=== PATIENT | female | born 1995 | race Caucasian/White ===

== ENCOUNTER 2023-10-19 13:51 | Emergency (ER) | payer BC ==
--- NOTE | 2023-10-19 14:21 | ED Physician Documentation ---
PD HPI CHEST PAIN - Stated complaint Stated Complaint: CHEST PX,SOA - Chief complaint Chief Complaint: Cardiac - History obtained from History obtained from: Patient - History of Present Illness Timing - onset: How many weeks ago (1) Timing - onset during: Light activity Timing - duration: Weeks (1) Timing - details: Still present, Intermittant Quality: Aching, Sharp, Pain Location: Left chest Associated symptoms: No: Shortness of air, Diaphoresis, Nausea, Cough Similar symptoms before: Has not had sx before Review of Systems Constitutional: denies: Fever, Chills Nose: denies: Rhinorrhea / runny nose, Congestion Throat: denies: Sore throat Respiratory: denies: Cough GI: denies: Nausea, Vomiting, Diarrhea Skin: denies: Rash, Lesions Musculoskeletal: denies: Extremity swelling PD PAST MEDICAL HISTORY - Past Medical History Past Medical History: No Cardiovascular: None Respiratory: None Neuro: None Endocrine/Autoimmune: None GI: None YOUTH ADVOCATE: None : None HEENT: None Psych: None Musculoskeletal: None Derm: None - Past Surgical History Past Surgical History: Yes General: Appendectomy - Present Medications Home Medications: Ambulatory Orders Medication Instructions Recorded Confirmed HYDROcod/ACETAM 5/325 [[place] 5/325] 1 ea PO Q6H PRN #14 tablet 10/19/23 Meloxicam [Mobic] 7.5 mg PO BID 10 Days #20 tablet 10/19/23 - Allergies Allergies/Adverse Reactions: Allergies Allergy/AdvReac Type Severity Reaction Status Date / Time No Known Drug Allergies Allergy Verified 10/19/23 14:02 - Social History Does the pt smoke?: No Smoking Status: Never smoker Does the pt drink ETOH?: Yes Does the pt have substance abuse?: No - Immunizations Immunizations are current?: Yes - POLST Patient has POLST: No PD ED PE NORMAL - Vitals Vital signs reviewed: Yes - General General: Alert and oriented X 3, No acute distress, Well developed/nourished - Cardiac Cardiac: RRR, No murmur - Respiratory Respiratory: No respiratory distress, Clear bilaterally, Other (some local chest wall tenderness left sternal border. No red/rash noted. ) - Abdomen Abdomen: Soft, Non tender - Derm Derm: Normal color, Warm and dry - Extremities Extremities: Normal ROM s pain, No edema, No calf tenderness / cord - Neuro Neuro: Alert and oriented X 3, No motor deficit, Normal speech Results - Vitals Vitals: Oxygen O2 Source Room air - Labs Labs: Laboratory Tests 10/19/23 10/19/23 14:25 14:25 WBC 8.4 RBC 4.28 Hgb 14.3 Hct 41.7 MCV 97.4 MCH 33.4 H MCHC 34.3 RDW 11.7 L Plt Count 215 MPV 10.4 Neut # (Auto) 5.0 Lymph # (Auto) 2.5 [place] # (Auto) 0.7 Eos # (Auto) 0.1 Baso # (Auto) 0.1 Absolute Nucleated RBC 0.00 Nucleated RBC % 0.0 Sodium 138 Potassium 3.6 Chloride 106 Carbon Dioxide 24 Anion Gap 8.0 BUN 9 Creatinine 0.6 Estimated GFR (MDRD) 117 Glucose 117 H Calcium 9.8 Total Bilirubin 0.4 AST 13 ALT 8 L Alkaline Phosphatase 50 Troponin I High Sens < 2.3 L Total Protein 7.2 Albumin 4.7 Globulin 2.5 Albumin/Globulin Ratio 1.9 Lipase 19 PD Medical Decision Making - ED course Complexity details: considered differential, d/w patient ED course: The patient has had a week of intermittent anterior chest pain associated with deep breathing but not movement. No change with eating. She had it for a day or so a week ago and then a few days ago and has been more consistent now the last 2 days. It is left parasternal. No prior similar. No recent cough cold or flu symptoms. No recent injury. No recent long travel (drove to [place] and back couple of times but no leg swelling etc.). No direct impact or injury. She states there has been some stress emotionally but nothing too severe. She is planning on a trip with a friend to [place] later this week. She had tried some aspirin at home without notable improvement. No other treatments at home. Consideration is low for ischemic heart disease. Her EKG is normal. She has not had any recent viral illness and no stigmata of edema or failure to suggest cardiomyopathy. Lung sounds are crisp without any wheezing. She does not had viral type illness or cough. We can do a chest x-ray and EKG and troponin as well as basic chemistry panel. If normal, I would attribute it to a pleurisy or costochondritis and treat with consistent anti-inflammatories and add Tylenol. Departure - Departure Disposition: 01 Home, Self Care Clinical Impression: Chest pain Condition: Stable Record reviewed to determine appropriate education?: Yes Instructions: ED Chest Pain Atypical Unkn Cause Prescriptions: Meloxicam [Mobic] 7.5 mg PO BID 10 Days #20 tablet HYDROcod/ACETAM 5/325 [[place] 5/325] 1 ea PO Q6H PRN #14 tablet PRN Reason: Pain Comments: Your EKG, chest x-ray and blood tests are normal. In particular 1 called troponin which she relates to any heart muscle injury. The chest x-ray would look for pneumonia, fluid around the lungs, collapsed lung or tumors. This was negative. The EKG showed a normal rhythm. At this point we will presume some inflammatory process of either the muscles and cartilage in the chest wall or per sometimes the outer part of the lung surface (pleurisy). It does not sound like food related or reflux or stomach. Blood test did not show any signs of inflammation of the pancreas or liver. You are not tender in the gallbladder area. Will treat it with anti-inflammatories. I would suggest a longer acting 1 can be just twice a day. I wrote for meloxicam twice daily for the next 7 to 10 days. Add Tylenol/acetaminophen 500 to 650 mg 4 times daily for the next several days or so. Add hydrocodone/acetaminophen if needed for worse pain. I would anticipate a downward trend in the symptoms over the next few days and resolution over 3 to 4 days. See if any new to development of symptoms such as cough fever etc. If so that could make sense as a for shadowing of some inflammation in through the lungs or chest. Otherwise follow-up if not better over the next several days to week and return if worse. I sent a prescription to [facility] pharmacy in [place]. I am prescribing a short course of narcotic pain medication for you. These are potentially dangerous and addictive medications that should be used carefully. These medications may constipate you. Take an [id number] stool softener such as docusate twice daily with plenty of water while taking these medications. If you go 24 hours without a bowel movement, take [id number] MiraLAX, per package instructions. Do not drink or drive while taking these medications. If you received narcotic or sedating medications while in the emergency department do not drive for 24 hours. Store this medication in a safe, secure place and out of reach of children. It is a violation of federal law to give or sell this medication to another person or to use in a manner other than prescribed. The ED will not refill narcotic prescriptions, including prescriptions lost or stolen. You can dispose of unwanted medications at the [facility]'s office or at several pharmacies such as [facility]. Forms: PCP List Discharge Date/Time: 10/19/23 15:58
[2023-10-19 14:28] VITALS: O2SAT 100
[2023-10-19] MEDS: ACETAMINOPHEN 325 MG TABLET PO STA (14:45)
[2023-10-19] MEDS: KETOROLAC 15 MG/ML VIAL IVP STA (14:45)
[2023-10-19 14:47] LABS: BASOPHILS # (AUTO) 0.1 10^3/uL (0.0-0.1); BASOPHILS % (AUTO) 0.8 %; EOSINOPHILS # (AUTO) 0.1 10^3/uL (0.0-0.7); EOSINOPHILS % (AUTO) 1.4 %; HCT - HEMATOCRIT 41.7 % (37.0-47.0); HGB - HEMOGLOBIN 14.3 g/dL (12.0-16.0); LYMPHOCYTES # (AUTO) 2.5 10^3/uL (1.5-3.5); LYMPHOCYTES % (AUTO) 29.5 %; MEAN CORPUSCULAR HEMOGLOBIN 33.4 pg (27.0-31.0); MEAN CORPUSCULAR HGB CONC 34.3 g/dL (32.0-36.0); MEAN CORPUSCULAR VOLUME 97.4 fL (81.0-99.0); MEAN PLATELET VOLUME 10.4 fL (7.9-10.8); MONOCYTES # (AUTO) 0.7 10^3/uL (0.0-1.0); MONOCYTES % (AUTO) 8.5 %; NEUTROPHILS % (AUTO) 59.4 %; PLT - PLATELET COUNT 215 10^3/uL (130-450); RED BLOOD COUNT 4.28 10^6/uL (4.20-5.40); RED CELL DISTRIBUTION WIDTH 11.7 % (12.0-15.0); WHITE BLOOD COUNT 8.4 x10^3/uL (4.8-10.8)
[2023-10-19 15:00] LABS: ALBUMIN 4.7 g/dL (3.2-5.5); ALBUMIN/GLOBULIN RATIO 1.9 (1.0-2.2); ALKALINE PHOSPHATASE 50 IU/L (42-121); ALT ALANINE AMINOTRANSFERASE 8 IU/L (10-60); AST ASPARTATE AMINOTRANSFERASE 13 IU/L (10-42); BILIRUBIN,TOTAL 0.4 mg/dL (0.2-1.0); BUN - BLOOD UREA NITROGEN 9 mg/dL (6-20); CALCIUM 9.8 mg/dL (8.5-10.3); CARBON DIOXIDE - CO2 24 mmol/L (21-32); CHLORIDE 106 mmol/L (101-111); CREATININE 0.6 mg/dL (0.6-1.3); GFR - MDRD 117 (>89); GLUCOSE 117 mg/dL (74-104); LIPASE 19 U/L (11-82); POTASSIUM 3.6 mmol/L (3.5-4.5); SODIUM 138 mmol/L (135-145); TOTAL PROTEIN 7.2 g/dL (6.4-8.9)
[2023-10-19 15:03] LABS: TROPONIN I HIGH SENSITIVITY < 2.3 ng/L (2.3-14.8)
--- NOTE | 2023-10-19 15:27 | XRAY Report ---
PROCEDURE: Chest 1V INDICATIONS: Chest Pain TECHNIQUE: One view of the chest was acquired. COMPARISON: None FINDINGS: Surgical changes and devices: None. Lungs and pleura: No pleural effusions or pneumothorax. Lungs are clear. Mediastinum: Mediastinal contours appear normal. Heart size is normal. Bones and chest wall: No suspicious bony lesions. Overlying soft tissues appear unremarkable. IMPRESSION: No acute cardiopulmonary findings Reviewed by: Augie Talavera MD on 10/19/2023 2:25 PM AKDT Approved by: Augie Talavera MD on 10/19/2023 2:25 PM AKDT Station ID: [id number]
[2023-10-19 16:04] VITALS: BP 124/88
== END 2023-10-19 15:58 | disposition home or self-care (01) ==
LOC: ED 13:51
DX: R07.89 Other chest pain (principal); R00.0 Tachycardia, unspecified
CPT/HCPCS: 36415; 71045; 80053; 83690; 84484; 85025; 93005; 96374; 99284; A9270